=== PATIENT | female | born 2000 | race Caucasian/White ===

== ENCOUNTER 2020-04-01 19:59 | Emergency (ER) | payer OTHER ==
[~2020-04-01] VITALS: Ht 162.6 cm; Wt 51.7 kg
[~2020-04-01 19:59] MED LIST: AMOX1TAB5 PO; KETO10TA2 PO
== END 2020-04-01 21:19 | disposition home or self-care (01) ==
LOC: ER 19:59
DX: R53.81 Other malaise (principal)